=== PATIENT | female | born 1970 | race Caucasian/White ===

== ENCOUNTER 2016-08-31 11:00 | Observation (INO) ==
[2016-08-31] MEDS ORDERED: Ipratropium/Albuterol Neb 3 ML IH ONE ×2 (11:24→11:42)
[2016-08-31] MEDS ORDERED: Furosemide 40 MG TABLET PO ONE (11:24)
--- NOTE | 2016-08-31 11:28 | Emergency Department Note ---
Disposition Clinical Impression: Swelling of both lower extremities, Hypoxia, Tobacco use Heart failure Qualifiers: Heart failure type: unspecified heart failure type Heart failure chronicity: unspecified heart failure chronicity Qualified Code(s): I50.9 - Heart failure, unspecified Disposition: Admitted As Inpatient Condition: Fair Referrals: Katie Sunshine CNP [Primary Care Provider] - Forms: ED Satisfaction Letter Time of Disposition: 13:06 General Adult HPI - General Chief complaint: ED Extremity Problem,Nontraumatic Stated complaint: bilat LE swelling Time Seen by Provider: 08/31/16 11:09 Source: patient Mode of arrival: ambulatory Limitations: no limitations Nursing Notes Reviewed: Yes Vital Signs Reviewed: Yes - History of Present Illness HPI Narrative: 46 yo female history of diabetes, smoking, asthma presents for evaluation of bilateral lower shimmery swelling. Patient notes a swelling is been intermittent over the past 3 weeks. Denies history of prior. Does state that she is recently changed her diabetes medication, provide 1 mg to 4 mg. This change occurred approximately 2 months ago and she relates this change in medication to possible lower ext swelling. Patient also notes some shortness of breath over the past several weeks that she attributes to her smoking and her asthma. Denies history of chest pain or cough. Denies nausea vomiting or abdominal pain. Denies any problems urinating. Denies ever taking a water pill. States she does crave sweets and has had a 10 pound weight gain in the past couple months. No history of DVT or PE. Pain Scale: 0 - Related Data Allergies Allergy/AdvReac Type Severity Reaction Status Date / Time codeine AdvReac Hives Verified 01/12/15 10:43 All systems ED: reviewed and negative except as stated. Constitutional: Reports: as per HPI. Denies: fever Eyes: Reports: as per HPI ENT ED: Reports: as per HPI Cardiovascular: Reports: as per HPI. Denies: chest pain Respiratory: Reports: as per HPI, dyspnea. Denies: cough Gastrointestinal: Reports: as per HPI. Denies: abdominal pain, nausea, vomiting Genitourinary: Reports: as per HPI Musculoskeletal: Reports: as per HPI Integumentary: Reports: as per HPI Neurological: Reports: as per HPI Psychiatric: Reports: as per HPI Endocrine: Reports: as per HPI Past Medical History - Past Medical History Medical history: Reports: diabetes, hypertension Surgical history: Reports: Psychiatric history: Reports: no psych history - Social History Smoking Status: Current every day smoker Smokeless Tobacco Status: No Alcohol use: Reports: occasionally Drug use: Reports: none Physical Exam - General Limitations: no limitations General appearance: alert, in no apparent distress, anxious - Head Head exam: atraumatic, normocephalic, normal inspection - Eye Eye exam: Present: normal appearance, PERRL, EOMI - ENT ENT exam: normal exam, mucous membranes moist - Neck Neck exam: Present: normal inspection, full ROM, trachea midline - Chest Chest inspection: Present: normal inspection, symmetric chest wall rise - Respiratory Respiratory exam: Present: wheezes (Diffuse inspiratory respiratory wheeze). Absent: respiratory distress - Cardiovascular Cardiovascular exam: Present: regular rate, tachycardia - Abdominal Exam Abdominal exam: Present: soft, Non-Tender - Extremities Exam Extremities exam: Present: normal inspection, pedal edema (1+/trace b/l ) - Back Exam Back exam: Present: normal inspection - Neurological Exam Neurological exam: Present: alert, oriented X3 - Skin Skin exam: Present: warm, dry, intact, normal color Course Course Narrative: 46 old female presents anxious amateur to the emergency department. Patient has bilateral lower summary swelling. No evidence of cellulitis. Patient will get a screening cardiac evaluation, also labs checking her renal function. Patient will also be given a single dose of Lasix. Patient does have an appointment with her PCP tomorrow. - Reevaluation(s) Reevaluation #1: Patient sitting up in bed. The patient that she is feeling better. Awaiting d- dimer. Time: 12:52 Reevaluation #2: Patient seen and examined. Patient was updated on plan of care. Recommend admission for new onset heart failure. Patient states that she does have to work tonight. Recommend that she needs further evaluation with diuresis trending troponins and echo. Time: 13:03 Vital Signs Temperature 98.7 F 08/31/16 11:03 Pulse Rate 106 08/31/16 11:03 Respiratory Rate 18 08/31/16 11:03 Blood Pressure 166/111 08/31/16 11:03 O2 Sat by Pulse Oximetry 91 08/31/16 11:03 Temperature 98.7 F 08/31/16 11:03 Pulse Rate 86 08/31/16 11:54 Respiratory Rate 18 08/31/16 11:54 Blood Pressure 147/111 08/31/16 11:54 O2 Sat by Pulse Oximetry 92 08/31/16 11:54 Oxygen Delivery Oxygen Delivery Room Air Medical Decision Making - [facility] Narrative Medical decision making narrative: 46 yo female patient for evaluation of bilateral lower ext swelling. Patient was found to be hypoxic with low oxygen saturation. Patient has had a history of asthma as well as tobacco use. Patient was treated with duo nebs. Patient was also given Lasix. Patient's chest x-ray was suggestive cardiomegaly and CHF with pulmonary vascular congestion. This is new onset. Patient's troponin and EKG shows no acute changes. Patient was given nitroglycerin. Patient is hypoxic with room air challenge. Recommend observation in the hospital with echo, trending troponins as well as diuresis. Optimize the patient for heart failure with medications. Patient is agreeable to plan of care. Patient's d- dimer is also negative which rules out pulmonary embolism as a cause of her hypoxia. - Lab Data Lab results reviewed: Yes I reviewed the patient's lab results. Result diagrams: 08/31/16 11:39 08/31/16 11:39 Lab Results 08/31/16 08/31/16 08/31/16 Range/Units 11:12 11:36 11:39 WBC 12.1 H (4.3-11.1) K/mcL RBC 5.90 H (3.82-4.97) M/mcL Hgb 16.0 H (11.5-15.4) g/dL Hct 52.5 H (35.3-44.9) % MCV 89.0 (83.0-100.0) fL MCH 27.1 L (28.0-33.3) pg MCHC 30.5 L (31.6-35.5) g/dL RDW 15.6 H (11.5-14.5) % Plt Count 239 (140-400) K/mcL MPV 10.5 (9.4-12.4) fL Immature Gran % 0.3 (0-4) % Seg Neutrophils % 77.4 % Lymphocytes % 16.3 % Monocytes % 4.9 % Eosinophils % 0.6 % Basophils % 0.5 % Neutrophils # 9.3 H (1.6-8.9) K/mcL Lymphocytes # 2.0 (0.6-4.6) K/mcL Monocytes # 0.6 (0.0-1.3) K/mcL Eosinophils # 0.1 (0.0-0.6) K/mcL Basophils # 0.1 (0.0-0.2) K/mcL D-Dimer (0-500) ng/mLFEU Sodium (136-145) mEq/L Potassium (3.5-4.5) mEq/L Chloride (98-109) mEq/L Carbon Dioxide (19-29) mEq/L BUN (7-20) mg/dL Creatinine (0.57-1.11) mg/dL Est GFR ( Amer) (> 60) Est GFR (Non-Af Amer) (> 60) BUN/Creatinine Ratio (6-26) Glucose (70-99) mg/dL POC Glucose 109 H (58-89) Calculated Osmolality (280-300) Calcium (8.6-10.8) mg/dL Troponin I (0-0.03) ng/mL B-Natriuretic Peptide 185 H (0-100) pg/mL 08/31/16 08/31/16 08/31/16 Range/Units 11:39 11:39 12:33 WBC (4.3-11.1) K/mcL RBC (3.82-4.97) M/mcL Hgb (11.5-15.4) g/dL Hct (35.3-44.9) % MCV (83.0-100.0) fL MCH (28.0-33.3) pg MCHC (31.6-35.5) g/dL RDW (11.5-14.5) % Plt Count (140-400) K/mcL MPV (9.4-12.4) fL Immature Gran % (0-4) % Seg Neutrophils % % Lymphocytes % % Monocytes % % Eosinophils % % Basophils % % Neutrophils # (1.6-8.9) K/mcL Lymphocytes # (0.6-4.6) K/mcL Monocytes # (0.0-1.3) K/mcL Eosinophils # (0.0-0.6) K/mcL Basophils # (0.0-0.2) K/mcL D-Dimer 374 (0-500) ng/mLFEU Sodium 138 (136-145) mEq/L Potassium 4.5 (3.5-4.5) mEq/L Chloride 99 (98-109) mEq/L Carbon Dioxide 32 H (19-29) mEq/L BUN 12 (7-20) mg/dL Creatinine 0.80 (0.57-1.11) mg/dL Est GFR ( Amer) > 60 (> 60) Est GFR (Non-Af Amer) > 60 (> 60) BUN/Creatinine Ratio 15 (6-26) Glucose 120 H (70-99) mg/dL POC Glucose (58-89) Calculated Osmolality 287 (280-300) Calcium 9.5 (8.6-10.8) mg/dL Troponin I 0.02 (0-0.03) ng/mL B-Natriuretic Peptide (0-100) pg/mL - Radiology Data Radiology results reviewed: Yes I reviewed the patient's radiology results. Chest X-Ray 08/31/16 11:23 IMPRESSION: 1. Airspace disease in the left upper lobe could represent pneumonia 2. Cardiomegaly with pulmonary vascular congestion D/ / Alvarez Chen MD / Alvarez Chen MD Interpreting Provider: Alvarez Chen MD - EKG Data EKG #1 EKG attestation: Yes I reviewed and interpreted this EKG. EKG shows normal: sinus rhythm Rate: normal Rhythm: NSR [place]/QRS: normal P waves: other (Inverted P waves in V1) T wave inversions noted in: v1 QTc: other (401) Interpretation: no acute changes S.B.A.R. - S.B.A.RDallin Situation: Demographics Background: Presenting Complaint Assessment: Vital Signs, Course and respsone to treatment, Patient/Family Expectation Recommendation: Barrier(s) to disposition, Recommendation based on pending studies, treatments, or consults S.B.A.RDallin Report Given to: Dr. Gema Putnam Repor Time: 13:10 Attestation Statement - Attestation Attestation: I examined this patient and my medical decision-making was reviewed with the [employer]LECT[employer] HARDWARE DESIGN ENGINEER/PA/Advanced Practice Nurse/Resident Physician. I agree with the documented findings, disposition and treatment plan as described except to the extent set forth below. Patient presents to the emergency department with a chief complaint of leg swelling. Increasing edema in her legs for 3 weeks. She has an appointment with her doctor tomorrow. States she has not discussed it with her yet. She thinks is related to new diabetes medication. On examination she is in no distress. She is noted to have expiratory wheezing or bases. 2+ pitting edema bilaterally. Oxygen saturation between 89 and 92% on room air. Plan. She is given a DuoNeb. Cardiac workup shows a slight elevation in her BNP. Chest x- ray is worsened from prior. She is hypertensive. I believe she is in acute decompensated heart failure. We will admit. D-dimer still pending.
[2016-08-31 11:46] LABS: Basophils # 0.1 K/mcL (0.0-0.2); Basophils % 0.5 %; Eosinophils # 0.1 K/mcL (0.0-0.6); Eosinophils % 0.6 %; Hematocrit 52.5 % (35.3-44.9); Immature Granulocytes % 0.3 % (0-4); Lymphocytes % 16.3 %; Mean Corpuscular HGB Conc 30.5 g/dL (31.6-35.5); Mean Corpuscular Hemoglobin 27.1 pg (28.0-33.3); Mean Platelet Volume 10.5 fL (9.4-12.4); Monocytes # 0.6 K/mcL (0.0-1.3); Monocytes % 4.9 %; Neutrophils # 9.3 K/mcL (1.6-8.9); Platelet Count 239 K/mcL (140-400); Red Cell Distribution Width 15.6 % (11.5-14.5); Segmented Neutrophils % 77.4 %
[2016-08-31 11:59] LABS: BUN/Creatinine Ratio 15 (6-26); Blood Urea Nitrogen 12 mg/dL (7-20); Calcium 9.5 mg/dL (8.6-10.8); Carbon Dioxide 32 mEq/L (19-29); Chloride 99 mEq/L (98-109); Glucose 120 mg/dL (70-99); Osmolality,Calculated 287 (280-300); Potassium 4.5 mEq/L (3.5-4.5); Sodium 138 mEq/L (136-145); eGFR For African Americans > 60 (> 60); eGFR For Non-African Americans > 60 (> 60)
[2016-08-31] MEDS ORDERED: Nitroglycerin 0.4 MG TAB.SUBL SL PRN (13:00)
[2016-08-31] MEDS ORDERED: Ipratropium/Albuterol Neb 3 ML IH PRN (14:49)
[2016-08-31] MEDS ORDERED: Dextrose Gel 15 GM PO PRN ×2 (14:51)
[2016-08-31] MEDS ORDERED: *HR* Morphine 2 MG/ML SYRINGE IVP PRN (14:51)
[2016-08-31] MEDS ORDERED: *HR* Dextrose 50 % in Water (Syg) 50 ML SYRINGE IVP PRN (14:51)
[2016-08-31] MEDS ORDERED: Naloxone 0.4 MG/ML INJ IVP PRN (14:51)
[2016-08-31] MEDS ORDERED: D5% in Water 1,000 ML IVC PRN (14:51)
[2016-08-31] MEDS ORDERED: Acetaminophen 325 MG TABLET PO PRN (14:51)
[2016-08-31] MEDS ORDERED: Ondansetron 4 MG/2 ML VIAL IVP PRN (14:51)
--- NOTE | 2016-08-31 14:59 | Internal Med History&Physical ---
Date of Encounter: 08/31/16 Time of Encounter: 14:57 Assessment and Plan (1) Acute respiratory failure with hypoxia Current visit: Yes Status: Acute Acute hypoxic respiratory failure secondary to combination of acute CHF systolic versus diastolic with possible sepsis due to community-acquired pneumonia Lasix IV, strict I's and O's, daily weight Echocardiogram Start Rocephin, ordered lactic acid and blood cultures Omeprazole for GI prophylaxis and subcutaneous heparin for DVT prophylaxis. The patient will be admitted as inpatient, expected to stay more than 2 minutes. Full code. Time spent on this admission 40 minutes (2) Sepsis Current visit: Yes Status: Acute Qualifiers: Sepsis type: sepsis due to unspecified organism Qualified Code(s): A41.9 - Sepsis, unspecified organism (3) Acute CHF Current visit: Yes Status: Acute Unknown whether it is systolic or diastolic Qualifiers: Congestive heart failure type: unspecified congestive heart failure type Qualified Code(s): I50.9 - Heart failure, unspecified (4) Diabetes Current visit: Yes Status: Acute Continue metformin, glimepiride Use insulin sliding scale Qualifiers: Diabetes mellitus type: type 2 Diabetes mellitus complication status: without complication Diabetes mellitus alf insulin use: without alf use Qualified Code(s): E11.9 - Type 2 diabetes mellitus without complications (5) Hypertension Current visit: Yes Status: Acute Accelerated hypertension Continue lisinopril May use hydralazine as needed Qualifiers: Hypertension type: essential hypertension Qualified Code(s): I10 - Essential (primary) hypertension (6) Swelling of both lower extremities Current visit: Yes Status: Acute (7) Tobacco use Current visit: Yes Status: Acute Smoking cessation counseling given for 5 min . Nicotine patch offered Internal Medicine - H&P: HPI Chief complaint: Shortness of breath Admitted From: Emergency Dept History of present illness: Ms. Hendrix is a 46 year old female with a past medical history of tobacco use, diabetes type 2 not insulin-dependent, hypertension, asthma who came to the emergency room complaining of severe leg swelling. She was noticed to be desaturating down to 89% on room air. She does not use oxygen at home. Her white blood cell count was 12.1 BNP 185 chest x-ray shows a possible left upper lobe opacity compatible with possible pneumonia and vascular congestion. Her heart rate was 106 blood pressure 166/111. The patient mentions that for the past few days she has been bringing up yellowish phlegm denies any sick contacts. At the moment she is in respiratory distress, very anxious. Denies any chest pain at the moment, complaint of chills, no fevers. D-dimer is 374. Past Med Surg Social Fam HX - Past Medical History Medical history: asthma, diabetes (Not insulin-dependent), hyperlipidemia, hypertension, other (Tobacco use, anxiety) Psychiatric history: no psych history - Past Surgical History Surgical History: - Social History Smoking Status: Current every day smoker Packs per day: One pack per day Smokeless Tobacco Status: No Alcohol use: occasionally Drug use: marijuana - Additional Family History Additional family history: Mother with colon cancer and father with CHF Internal Medicine - H&P: Meds Albuterol Sulfate [Proair Hfa] 1 - 2 puff IH Q6H PRN 08/31/16 [History] Glimepiride [Amaryl] 4 mg PO QAM 08/31/16 [History] Lisinopril [Zestril] 5 mg PO QAM 08/31/16 [History] Lovastatin [Mevacor] 20 mg PO QPM 08/31/16 [History] Metformin HCl [Glucophage] 1,000 mg PO BID 08/31/16 [History] Multivitamin/Iron/Folic Acid [Centrum Women Tablet] 1 tab PO QPM 08/31/16 [ History] Allergies codeine Allergy (Verified 08/31/16 14:12) Hives All Systems PM: A 10-system review of systems was performed and is negative for pertinent findings except as documented above in the HPI. Review of systems: Still short of breath, was complaining of some chest pressure earlier today, troponin is normal. Other systems out of the 10 review are negative - Constitutional Vitals: Temp Pulse Resp BP Pulse Ox 98.7 F 87 17 153/105 89 08/31/16 11:03 08/31/16 13:28 08/31/16 13:49 08/31/16 13:49 08/31/16 13:28 General appearance: Present: A&O X 3, morbidly obese - Head Head exam: Present: atraumatic, normocephalic - Eye Eye exam: Present: PERRL, conjuntiva pink, sclera anicteric Pupils: Present: PERRL - Neck Neck exam general surgery: Present: supple, trachea midline. Absent: lymphadenopathy - Respiratory Respiratory exam: Present: CTAB, rales (Diffuse crackles, no wheezing). Absent : accessory muscle use, rhonchi, wheezes - Cardiovascular Cardiovascular exam: Present: RRR, +S1, +S2. Absent: diastolic murmur, gallop, rubs, systolic murmur - GI/Abdominal GI/Abdominal exam: Present: normal bowel sounds, soft, no peritoneal signs. Absent: distended, tenderness - Extremities Exam Extremities exam: Present: pedal edema (+2 pitting edema in both lower extremities), warm, radial pulses palpable and symetrical. Absent: calf tenderness, cyanotic - Neurological Exam Neurological exam: Present: CN II-XII intact, oriented X3, no focal deficits. Absent: pronater drift, facial droop, speech deficit - Skin Skin exam: Present: dry, intact Internal Med - H&P Results - Labs CBC & Chem 7: 08/31/16 11:39 08/31/16 11:39
[2016-08-31] MEDS: Furosemide 40 MG/4 ML VIAL IVP SCH ×2 (15:29→21:05)
[2016-08-31] MEDS: Nicotine 21 MG PATCH.TD24 TD SCH (15:30)
[2016-08-31] MEDS: Insulin LISPRO 300 UNITS/3 ML VIAL SQ SCH (17:04)
[2016-08-31] MEDS ORDERED: Perflutren Lipid Microsphere 1.3 ML in 0.9 % Sodium Chloride 8.7 ML IVP ONE (20:57)
[2016-08-31] MEDS ORDERED: Insulin LISPRO 300 UNITS/3 ML VIAL SQ SCH (21:00)
[2016-08-31] MEDS: *HR* Heparin 5,000 UNIT/ML VIAL SQ SCH (21:04)
[2016-08-31] MEDS: *HR* Metformin 500 MG TABLET PO SCH (21:04)
[2016-09-01 04:22] LABS: Hematocrit 54.2 % (35.3-44.9); Hemoglobin 16.8 g/dL (11.5-15.4); Mean Corpuscular Hemoglobin 27.5 pg (28.0-33.3); Mean Corpuscular Volume 88.9 fL (83.0-100.0); Mean Platelet Volume 11.6 fL (9.4-12.4); Platelet Count 181 K/mcL (140-400); Red Cell Distribution Width 17.2 % (11.5-14.5)
[2016-09-01 04:37] LABS: BUN/Creatinine Ratio 16 (6-26); Blood Urea Nitrogen 13 mg/dL (7-20); Calcium 9.3 mg/dL (8.6-10.8); Carbon Dioxide 30 mEq/L (19-29); Chloride 100 mEq/L (98-109); Cholesterol 138 mg/dL (< 200); Glucose 180 mg/dL (70-99); HDL Cholesterol 23 mg/dL (40-59); LDL Cholesterol,Calculated 89 mg/dL (0-99); Osmolality,Calculated 293 (280-300); Sodium 139 mEq/L (136-145); Triglycerides 128 mg/dL (< 150); eGFR For African Americans > 60 (> 60); eGFR For Non-African Americans > 60 (> 60)
[2016-09-01 04:38] LABS: Potassium 5.3 mEq/L (3.5-4.5)
[2016-09-01] MEDS: *HR* Heparin 5,000 UNIT/ML VIAL SQ SCH (04:59)
[2016-09-01 07:29] VITALS: BP 131/94
[2016-09-01] MEDS ORDERED: Azithromycin 500 MG in D5% in Water 250 ML IVPB SCH (08:00)
[2016-09-01] MEDS ORDERED: *HR* Glimepiride 4 MG TABLET PO SCH (09:00)
[2016-09-01] MEDS: Nicotine 21 MG PATCH.TD24 TD SCH (09:04)
[2016-09-01] MEDS: *HR* Metformin 500 MG TABLET PO SCH (09:04)
[2016-09-01] MEDS: Furosemide 40 MG/4 ML VIAL IVP SCH (09:05)
[2016-09-01] MEDS: Ampicillin/Sulbactam 1,500 MG in 0.9 % Sodium Chloride Mini Bag 100 ML IVPB SCH ×2 (09:05→11:58)
[2016-09-01] MEDS: Insulin LISPRO 300 UNITS/3 ML VIAL SQ SCH ×2 (09:05→11:57)
[2016-09-01] MEDS ORDERED: methylPREDNISolone 125 MG/2 ML VIAL IVP ONE (10:32)
--- NOTE | 2016-09-01 10:45 | Discharge Summary ---
Date of Encounter: 09/01/16 Time of Encounter: 10:43 - Discharge Diagnosis (1) Acute respiratory failure with hypoxia Priority: Primary Status: Acute Comments: Acute hypoxic respiratory failure secondary to combination of acute diastolic CHF with mild acute COPD exacerbation due to acute sepsis from community- acquired pneumonia/tooth abscess, unknown infectious agent (2) Sepsis Priority: Primary Status: Acute Qualifiers: Sepsis type: sepsis due to unspecified organism Qualified Code(s): A41.9 - Sepsis, unspecified organism (3) Acute CHF Priority: Primary Status: Acute Qualifiers: Congestive heart failure type: diastolic Qualified Code(s): I50.31 - Acute diastolic (congestive) heart failure (4) Diabetes Priority: Secondary Status: Acute Qualifiers: Diabetes mellitus type: type 2 Diabetes mellitus complication status: without complication Diabetes mellitus longterm insulin use: without longterm use Qualified Code(s): E11.9 - Type 2 diabetes mellitus without complications (5) Hypertension Priority: Secondary Status: Acute Qualifiers: Hypertension type: essential hypertension Qualified Code(s): I10 - Essential (primary) hypertension (6) Swelling of both lower extremities Priority: Primary Status: Acute (7) Tobacco use Priority: Secondary Status: Acute - Discharge Medications Prescriptions: Amoxicillin/Clavulanate [Augmentin] 875 mg PO BIDWM #14 tablet Azithromycin [Zithromax] 250 mg PO DAILY #4 tablet Furosemide [Lasix] 40 mg PO DAILY #30 tablet predniSONE [PredniSONE] 40 mg PO DAILY #5 tablet Home Medications: Albuterol Sulfate [Proair Hfa] 1 - 2 puff IH Q6H PRN 08/31/16 [History] Glimepiride [Amaryl] 4 mg PO QAM 08/31/16 [History] Lisinopril [Zestril] 5 mg PO QAM 08/31/16 [History] Lovastatin [Mevacor] 20 mg PO QPM 08/31/16 [History] Metformin HCl [Glucophage] 1,000 mg PO BID 08/31/16 [History] Multivitamin/Iron/Folic Acid [Centrum Women Tablet] 1 tab PO QPM 08/31/16 [ History] Amoxicillin/Clavulanate [Augmentin] 875 mg PO BIDWM #14 tablet 09/01/16 [Rx] Azithromycin [Zithromax] 250 mg PO DAILY #4 tablet 09/01/16 [Rx] Furosemide [Lasix] 40 mg PO DAILY #30 tablet 09/01/16 [Rx] predniSONE [PredniSONE] 40 mg PO DAILY #5 tablet 09/01/16 [Rx] Allergies/Adverse Reactions: Allergies codeine Allergy (Verified 08/31/16 14:12) Hives Date of admission: 08/31/16 15:32 Primary care physician: ALYCIA Bird Consults: 09/01/16 05:02 Consult to Manager Meeting [CONS] Routine Reason for SW Consult: No insurance. Uses PCP that has sliding scale, but would like to find another that uses sliding scale fee. - Patient Status Disposition: Home, Self-Care Condition: Good Overall status at discharge: patient is progressing back to baseline - Discharge Instructions Instructions: Heart Failure (DC), Heart Healthy Diet (DC) Follow Up With: Katie Sunshine CNP [Primary Care Provider] - 09/11/16 9:00 am Additional Instructions: Follow-up with primary care physician within the next 7 days. Continue Augmentin for 7 days, 4 more days of azithromycin. Take prednisone for 5 days and stop. Start Lasix 40 mg daily. Quit smoking. - Diet and Activity Activity: increase activity as tolerated Diet: diabetic diet Hospital course: Ms. Hendrix is a 46 year old female with a past medical history of tobacco use, diabetes type 2 not insulin-dependent, hypertension, asthma who came to the emergency room complaining of severe leg swelling. She was noticed to be desaturating down to 89% on room air. She does not use oxygen at home. Her white blood cell count was 12.1 BNP 185 chest x-ray showed a possible left upper lobe opacity compatible with possible pneumonia and vascular congestion. Her heart rate was 106 blood pressure 166/111. The patient mentioned that for the past few days she has been bringing up yellowish phlegm denies any sick contacts. D-dimer was 374. Was initially started on Lasix IV, Rocephin and Azitrhomycin. Has been complaining of a dental abscess. ROcephin was discontinued and was given Unasyn. Echo Showed EF of 50% and mild diastolic dysfunction. Received solumedrol as she estarted wheezing ( heavy smoker) Swelling in legs have come down. Feels better. Was given the option to stay another day but prefers to b discharged home. Time spent discussing smoking cessation with patient: 3 to 10 minutes - Time Spent with Patient Total time spent providing and/or coordinating discharge services: Greater than 30 minutes (40 min) - Constitutional Vitals: Temp Pulse Resp BP Pulse Ox 97.5 F L 72 18 131/94 93 09/01/16 07:21 09/01/16 07:21 09/01/16 07:21 09/01/16 07:09/01/16 09:30 General appearance: Present: A&O X 3, morbidly obese - Head Head exam: Present: atraumatic, normocephalic - Eye Eye exam: Present: PERRL, conjuntiva pink, sclera anicteric Pupils: Present: PERRL - Neck Neck exam general surgery: Present: supple, trachea midline. Absent: lymphadenopathy - Respiratory Respiratory exam: Present: CTAB, wheezes (mild diffuse wheezing). Absent: accessory muscle use, rales, rhonchi - Cardiovascular Cardiovascular exam: Present: RRR, +S1, +S2. Absent: diastolic murmur, gallop, rubs, systolic murmur - GI/Abdominal GI/Abdominal exam: Present: distended, normal bowel sounds, soft, no peritoneal signs. Absent: tenderness - Extremities Exam Extremities exam: Present: pedal edema (+1 p[facility] edema [facility]), warm, radial pulses palpable and symetrical. Absent: calf tenderness, cyanotic - Neurological Exam Neurological exam: Present: CN II-XII intact, oriented X3, no focal deficits. Absent: pronater drift, facial droop, speech deficit - Skin Skin exam: Present: dry, intact
[2016-09-01] MEDS ORDERED: MethylPREDNISolone 40 MG/ML VIAL IVP SCH (16:00)
--- NOTE | 2016-09-01 16:10 | Electrocardiograph Report ---
[address] [address] Test Date: 2016-08-31 Pat Name: Rissa Hendrix Department: 103 Room: 2A Gender: F Transverse Abdominal Muscle Surgeon: ASA : [id number] Requested By: Dc Gutierrez Order Number: [id number] Reading MD: Johnie Kang Measurements Intervals [place] Rate: 93 P: 57 LA: 130 QRS: 86 QRSD: 90 T: 40 QT: 350 QTc: 401 Interpretive Statements SINUS RHYTHM POSSIBLE LEFT ATRIAL ENLARGEMENT Electronically Signed On 09-01-2016 16:09:02 EDT by Johnie Kang
== END 2016-09-01 13:36 | disposition home or self-care (01) ==
LOC: 2ANU 11:00 → EMEROO 11:00 → SUATTDRO 13:29 → 2ANU 13:56
PROVIDERS: ADMIT Internal Medicine; ATTEND Internal Medicine